=== PATIENT | male | born 1990 | race Two or more races ===

== ENCOUNTER 2017-08-01 17:06 | Inpatient (IN) | payer OTHER ==
[~2017-08-01] VITALS: Ht 172.7 cm; Wt 104.3 kg
--- NOTE | 2017-08-01 17:09 | NUR ---
[facility] [employer]. PT IS AWAKE AND ALERT.
--- NOTE | 2017-08-01 17:26 | NUR ---
PATIENT REQUESTS ASAF. I GAVE HIM ICED CRANBERRY JUICE.
[2017-08-01] MEDS ORDERED: IV NORMAL SALINE 1000 ML BAG IV ONE ×2 (17:30→18:30)
[2017-08-01] MEDS ORDERED: LORAZEPAM 2 MG/1 ML VIAL ONE (17:42)
[2017-08-01] MEDS ORDERED: LORAZEPAM 2 MG/1 ML VIAL IV ONE (17:45)
[2017-08-01 18:06] LABS: BASOPHILS % (AUTO) 0.3 % (0.0-2.0); EOSINOPHILS % (AUTO) 0.2 % (0.0-7.0); HEMOGLOBIN 17.1 g/dL (12.5-16.3); LYMPHOCYTES % (AUTO) 13.8 % (20.5-51.5); MEAN CORPUSCULAR HEMOGLOBIN 30.4 uug (23.8-33.4); MEAN CORPUSCULAR HGB CONC 35 g/dL (32.5-36.3); MEAN CORPUSCULAR VOLUME 87.2 fL (73.0-96.2); MONOCYTES # (AUTO) 0.8 K/uL (2.0-10.0); MONOCYTES % (AUTO) 5.6 % (0.0-11.0); NEUTROPHILS # (AUTO) 11.7 K/uL (1.8-8.9); NEUTROPHILS % (AUTO) 80.1 % (38.5-71.5); PLATELET COUNT (AUTO) 331 K/uL (152-348); RED BLOOD CELL COUNT(AUTO) 5.61 MIL/uL (4.06-5.63); WHITE BLOOD COUNT (AUTO) 14.6 K/uL (3.6-10.2)
[2017-08-01 18:12] LABS: CARBON DIOXIDE 24 mmol/L (21-32); CHLORIDE 106 mmol/L (98-107); CREATININE 1.8 mg/dL (0.6-1.3); GLUCOSE 97 mg/dL (74-106); POTASSIUM 3.3 mmol/L (3.5-5.1); UREA NITROGEN, BLOOD 15 mg/dL (7-18)
[2017-08-01 18:13] LABS: ETHANOL < 3 MG/DL (0-0)
--- NOTE | 2017-08-01 18:24 | NUR ---
PATIENT IS DRINKING ICE WATER COMFORTABLY.
[2017-08-01 18:26] LABS: THYROID STIMULATING HORMONE 1.909 mIU/mL (0.358-3.740)
[2017-08-01 18:28] LABS: ALANINE AMINOTRANSFERASE 48 U/L (16-63); ALKALINE PHOSPHATASE 98 U/L (50-136); ASPARTATE AMINOTRANSFERASE 38 U/L (15-37); BILIRUBIN,DIRECT 0.1 mg/dL (0.0-0.2); BILIRUBIN,TOTAL 0.8 mg/dL (0.2-1.0); TOTAL PROTEIN, SERUM 8.2 g/dL (6.4-8.2)
[2017-08-01 18:30] LABS: ACETAMINOPHEN < 2.0 ug/mL (10-30)
--- NOTE | 2017-08-01 19:06 | NUR ---
PATIENT IS SITTING UP DRINKING SOME JUICE IN NO DISTRESS. HE IS CALM NOW. HE DENIES PAIN. REPORT GIVEN TO KENIA BISHOP, TRANSIT MIXER OPERATOR.
--- NOTE | 2017-08-01 19:15 | NUR ---
Received SBAR report from Adrinae BISHOP.
[2017-08-01 20:00] LABS: CREATININE 1.5 mg/dL (0.6-1.3); POTASSIUM 3.1 mmol/L (3.5-5.1)
--- NOTE | 2017-08-01 20:10 | NUR ---
Patient sitting in bed, keeps clamping IV, no acute signs of distress.
--- NOTE | 2017-08-01 20:30 | NUR ---
Patient requested for some food, provided with a tuna sandwich. Patient eating tuna sandwich.
--- NOTE | 2017-08-01 21:17 | NUR ---
Patient sitting in bed, sleeping, no acute signs of distress.
--- NOTE | 2017-08-01 21:36 | NUR ---
Dr. Rouse on panel call with Dr. Fu.
[2017-08-01 21:55] LABS: *BILIRUBIN,URIN NEGATIVE (NEGATIVE); *BLOOD, URINE NEGATIVE (NEGATIVE); *COLOR,URINE YELLOW (YELLOW); *KETONES,URINE TRACE (NEGATIVE); *PROTEIN,URINE 1+ (NEGATIVE); *UROBILINOGEN,URINE 0.2 E.U./dl (NORMAL); LEUKOCYTE ESTERASE ,URINE NEGATIVE (NEGATIVE); NITRITE, URINE NEGATIVE (NEGATIVE); PH,URINE 5.5 (5.0-8.0); UGLUCOSE NEGATIVE (NEGATIVE)
[2017-08-01 22:03] LABS: *CLARITY,URINE SLIGHTLY HAZY (CLEAR)
[2017-08-01 22:04] LABS: CALCIUM OXALATE CRYSTALS,UR MODERATE /HPF (NONE SEEN); COARSE GRANULAR CASTS,URINE 0-3 /LPF; MUCUS,URINE MANY /LPF (0-FEW); WBC,URINE 0-3 /HPF (0-3)
[2017-08-01 22:07] LABS: *AMPHETAMINE, URINE POSITIVE (NEGATIVE); *BARBITURATE, URINE NEGATIVE (NEGATIVE); *CANNABINOID, URINE NEGATIVE (NEGATIVE); *COCCAINE, URINE NEGATIVE (NEGATIVE); *OPIATE, URINE NEGATIVE (NEGATIVE); *PHENCYCLIDINE SCREEN,URINE NEGATIVE (NEGATIVE)
--- NOTE | 2017-08-01 22:40 | NUR ---
Passed report to Alisha BISHOP Tele.
[2017-08-01] MEDS ORDERED: POTASSIUM CHLORIDE 20 MEQ in IV D5 1/2 NS 1000 ML 1,000 ML IV PRN (22:45)
[2017-08-01] MEDS ORDERED: ONDANSETRON 4 MG/2 ML VIAL IV PRN (22:45)
[2017-08-01] MEDS ORDERED: LORAZEPAM 2 MG/1 ML VIAL IV PRN (22:45)
[2017-08-01] MEDS ORDERED: MORPHINE SULFATE 4 MG/1 ML DISP.SYRIN IV PRN (22:45)
[2017-08-01] MEDS ORDERED: ACETAMINOPHEN 325 MG TABLET PO PRN (22:45)
--- NOTE | 2017-08-01 23:30 | NUR ---
RECEIVED PT FROM ER VIA [facility]. PT IS AWAKE, ALERT, ORIENTEDX3. PT ADMITTED TO TELEMETRY UNDER THE CARE OF DR. CISNEROS. DX: HEAT STROKE. BELONGING LIST DONE. ADMISSION PROCESS AND CARE PLAN INITIATED. JAIL ASSESSMENT DONE. CALL LIGHT WITHIN REACH. BED ALARM ON AND IN LOW POSITION. SAFETY AND COMFORT PROVIDED. PT IS CRYSING ASKED HIM WHY. HE STATED MIXED EMOTION. WILL CONTINUE TO MONITOR.
[2017-08-02 00:25] VITALS: BP 115/74
[2017-08-02 04:00] VITALS: BP 120/65
[2017-08-02] MEDS: PANTOPRAZOLE SODIUM 40 MG TABLET.DR PO SCH (06:02)
[2017-08-02 06:08] LABS: BASOPHILS % (AUTO) 0.4 % (0.0-2.0); EOSINOPHILS # (AUTO) 0.4 K/uL (0.0-0.7); EOSINOPHILS % (AUTO) 3.7 % (0.0-7.0); HEMATOCRIT 42.6 % (36.7-47.1); HEMOGLOBIN 14.6 g/dL (12.5-16.3); LYMPHOCYTES # (AUTO) 4.2 K/uL (20.0-40.0); LYMPHOCYTES % (AUTO) 42.2 % (20.5-51.5); MEAN CORPUSCULAR HEMOGLOBIN 30.2 uug (23.8-33.4); MEAN CORPUSCULAR HGB CONC 34 g/dL (32.5-36.3); MONOCYTES # (AUTO) 0.8 K/uL (2.0-10.0); MONOCYTES % (AUTO) 7.9 % (0.0-11.0); NEUTROPHILS # (AUTO) 4.5 K/uL (1.8-8.9); NEUTROPHILS % (AUTO) 45.8 % (38.5-71.5); PLATELET COUNT (AUTO) 282 K/uL (152-348); RED BLOOD CELL COUNT(AUTO) 4.84 MIL/uL (4.06-5.63); WHITE BLOOD COUNT (AUTO) 9.8 K/uL (3.6-10.2)
--- NOTE | 2017-08-02 06:31 | NUR ---
PT SLEPT THROUGHOUT THE SHIFT. PT SHOWS NO SIGNS OF ACUTE DISTRESS. PT IV INTACT AND PATENT. BED ALARM ON AND IN LOW POSITION. SIDE RAILS UP X2. PRESCRIBED MEDICATION GIVEN. PT TOLERATED IT WELL. SAFETY AND COMFORT PROVIDED. WILL ENDORSE TO DAYSHIFT NURSE.
[2017-08-02 06:34] LABS: BILIRUBIN,TOTAL 0.6 mg/dL (0.2-1.0); CREATININE 1.2 mg/dL (0.6-1.3); MAGNESIUM 2.2 mg/dL (1.8-2.4); PHOSPHOROUS 4.8 mg/dL (2.5-4.9); POTASSIUM 3.5 mmol/L (3.5-5.1); TOTAL PROTEIN, SERUM 6.4 g/dL (6.4-8.2)
--- NOTE | 2017-08-02 07:54 | NUR ---
report received from Taylor, 26 yr old male was admitted on 08/01 for heat stroke. Patient on tele ekg sinus rhythm. IV fluid infusing via RAC #20. D5 05/07 NS plus 20meq kcl Addendum: 08/02/17 at 0755 by MARYCRUZ VACA RN Amended: Links added.
[2017-08-02 11:22] VITALS: BP 103/52
[2017-08-02] MEDS ORDERED: MORPHINE SULFATE 2 MG/1 ML DISP.SYRIN IV PRN (12:00)
[2017-08-02] MEDS: IV D5 1/2 NS 1000 ML 1,000 ML IV PRN ×3 (12:33→20:29)
--- NOTE | 2017-08-02 13:02 | NUR ---
seen by SCAR Jacques. orders received. principal clerk typist talked to patient and patient's family Addendum: 08/02/17 at 1302 by MARYCRUZ VACA RN Amended: Links added.
[2017-08-02 15:01] VITALS: BP 115/70
[2017-08-02] MEDS: THIAMINE HCL 100 MG TABLET PO SCH (15:15)
[2017-08-02] MEDS: MULTIVITAMINS,THERAPEUTIC TABLET PO SCH (15:15)
[2017-08-02] MEDS: FOLIC ACID 1 MG TABLET PO SCH (15:15)
[2017-08-02] MEDS: HYDROCODONE/APAP 5-325MG TABLET PO PRN (15:18)
--- NOTE | 2017-08-02 15:20 | NUR ---
medicated for right leg pain scale /10 Addendum: 08/02/17 at 1520 by MARYCRUZ VACA RN Amended: Links added.
--- NOTE | 2017-08-02 16:07 | NUR ---
tele monitor dc/d Addendum: 08/02/17 at 1607 by MARYCRUZ VACA RN Amended: Links added.
--- NOTE | 2017-08-02 19:10 | NUR ---
Sleeping during initial rounds., No s/s of pain/discomforts noted. IV fluid infusing well. No s/s of infiltration noted. Continue plan of care.
--- NOTE | 2017-08-02 19:31 | NUR ---
report given to Ammy RN Addendum: 08/02/17 at 1931 by MARYCRUZ VACA RN Amended: Links added.
[2017-08-02 21:05] VITALS: BP 114/60
[2017-08-03] MEDS: IV D5 1/2 NS 1000 ML 1,000 ML IV PRN (04:01)
[2017-08-03] MEDS: HYDROCODONE/APAP 5-325MG TABLET PO PRN (04:22)
[2017-08-03 05:30] VITALS: BP 114/71
--- NOTE | 2017-08-03 05:39 | NUR ---
SHIFT END REPORT: VSS. Slept good. Medicated once for pain with relief. No further complaint presented. IVF continuos as ordered. No suicidal thoughts reported. All needs attended and met.No significant event reported all night. Continue current plan of care.
[2017-08-03] MEDS: PANTOPRAZOLE SODIUM 40 MG TABLET.DR PO SCH (06:11)
[2017-08-03 06:54] LABS: BASOPHILS % (AUTO) 0.5 % (0.0-2.0); EOSINOPHILS # (AUTO) 0.4 K/uL (0.0-0.7); EOSINOPHILS % (AUTO) 4.9 % (0.0-7.0); HEMATOCRIT 43.1 % (36.7-47.1); HEMOGLOBIN 14.8 g/dL (12.5-16.3); LYMPHOCYTES # (AUTO) 3.1 K/uL (20.0-40.0); LYMPHOCYTES % (AUTO) 34.2 % (20.5-51.5); MEAN CORPUSCULAR HEMOGLOBIN 30.3 uug (23.8-33.4); MEAN CORPUSCULAR HGB CONC 34 g/dL (32.5-36.3); MEAN CORPUSCULAR VOLUME 88.3 fL (73.0-96.2); MONOCYTES # (AUTO) 0.5 K/uL (2.0-10.0); MONOCYTES % (AUTO) 5.9 % (0.0-11.0); NEUTROPHILS % (AUTO) 54.5 % (38.5-71.5); PLATELET COUNT (AUTO) 261 K/uL (152-348); RED BLOOD CELL COUNT(AUTO) 4.88 MIL/uL (4.06-5.63); WHITE BLOOD COUNT (AUTO) 9.1 K/uL (3.6-10.2)
--- NOTE | 2017-08-03 07:20 | NUR ---
received report from night nurse nurse, patient in bed asleep, no distress noted, bed in low position, side rails up x2.
[2017-08-03 07:47] LABS: BILIRUBIN,TOTAL 0.3 mg/dL (0.2-1.0); CREATININE 0.9 mg/dL (0.6-1.3); PHOSPHOROUS 3.4 mg/dL (2.5-4.9); POTASSIUM 3.3 mmol/L (3.5-5.1)
[2017-08-03] MEDS: MULTIVITAMINS,THERAPEUTIC TABLET PO SCH (09:00)
[2017-08-03] MEDS: THIAMINE HCL 100 MG TABLET PO SCH (09:00)
[2017-08-03] MEDS: FOLIC ACID 1 MG TABLET PO SCH (09:00)
[2017-08-03] MEDS ORDERED: POTASSIUM CHLORIDE 20 MEQ TAB.PRT.SR PO ONE (10:45)
[2017-08-03 11:47] VITALS: BP 121/54
--- NOTE | 2017-08-03 15:20 | NUR ---
PATIENT WAS GIVEN DISCHARGE INSTRUCTIONS, IV REMOVED, AND ALL BELONGINGS ACCOUNTED FOR. PATIENT WAS PICKED UP BY PARENTS, AND TAKEN VIA WHEELCHAIR TO MEET THEM AT THE CAR. NO DISTRESS NOTED AT THE TIME OF DISCHARGE.
[2017-08-03 15:24] VITALS: BP 129/63
== END 2017-08-03 15:24 | disposition home or self-care (01) | DRG 815 ==
LOC: ER 17:06 → TELE 22:16 → MED 08-02 16:15
PROVIDERS: ADMIT Internal Medicine; ATTEND Internal Medicine
DX: T67.0XXA Heatstroke and sunstroke, initial encounter (principal); N17.9 Acute kidney failure, unspecified; M62.82 Rhabdomyolysis; E88.09 Other disorders of plasma-protein metabolism, not elsewhere classified; E83.51 Hypocalcemia; D75.1 Secondary polycythemia; R40.4 Transient alteration of awareness; J45.909 Unspecified asthma, uncomplicated; Z82.49 Family history of ischemic heart disease and other diseases of the circulatory system; Z83.3 Family history of diabetes mellitus; F17.211 Nicotine dependence, cigarettes, in remission; Z86.59 Personal history of other mental and behavioral disorders; E66.9 Obesity, unspecified; Z68.35 Body mass index [BMI] 35.0-35.9, adult; X58.XXXA Exposure to other specified factors, initial encounter; Y92.009 Unspecified place in unspecified non-institutional (private) residence as the place of occurrence of the external cause; E86.0 Dehydration; E87.6 Hypokalemia; F14.10 Cocaine abuse, uncomplicated; I08.1 Rheumatic disorders of both mitral and tricuspid valves; M19.90 Unspecified osteoarthritis, unspecified site; R07.9 Chest pain, unspecified; F15.159 Other stimulant abuse with stimulant-induced psychotic disorder, unspecified
CPT/HCPCS: 36415; 70030-TC; 71045; 80307; 83735; 84100; 84443; 85025; 85730; 87040; 87086; 93005; 93307; A4663; G0480; G0480-TC; J2060; J3480; J3490; J7030